=== PATIENT | female | born 1960 | race African-American/Black ===

== ENCOUNTER 2021-03-06 18:00 | Outpatient (CLI) | payer BC | END 2021-03-06 18:01 | disposition home or self-care (01) | LOC: SLEEPLAB 18:00 | PROVIDERS: ATTEND Internal Medicine | DX: G47.33 Obstructive sleep apnea (adult) (pediatric) (principal); R53.83 Other fatigue; R06.83 Snoring; G47.00 Insomnia, unspecified; R51.9 Headache, unspecified; I63.9 Cerebral infarction, unspecified; F41.9 Anxiety disorder, unspecified; G47.31 Primary central sleep apnea | CPT/HCPCS: 95806 ==